=== PATIENT | male | born 1970 | race Caucasian/White ===

== ENCOUNTER 2020-01-05 12:35 | Emergency (ER) | payer BC, SELFPAY ==
[2020-01-05 12:45] VITALS: BP 136/86; PULSE 83; RESP 20; TEMP 36.7; O2SAT 99
--- NOTE | 2020-01-05 12:50 | ED.GENADULT ---
HPI - General Adult General Chief complaint: Dizziness Stated complaint: ears and congestion Time Seen by Provider: 01/05/20 12:50 Source: patient and RN notes reviewed Mode of arrival: ambulatory Limitations: no limitations History of Present Illness HPI narrative: 49-year-old male presents with complaints of dizziness and nausea that has been going on for 1 day. Symptoms increased throughout the past 24 hours. Advil and Claritin, last 1 day ago without relief. Festus complains of nasal congestion and rhinorrhea. Exacerbating factors consist of changing position too fast turning head from side to side. Relieving factors is sitting still. Denies ear pain, ear itching, ear trauma, trauma to head, syncopal episodes, altered vision, altered speech, confusion, or seizure activity. Denies headache, numbness or tingling in extremities. Denies chest pain or dyspnea. Remains active. Festus says he has been driving throughout the country ([place], [facility], and now here in [place]) by RV visiting family. Says he recently had a NEGATIVE COVID-19 test on 12/06/19. The patient reports he have not been diagnosed with COVID-19. The patient reports he is not waiting for the results of a COVID-19 lab test. The patient reports he do not have fever, chills, weakness, or fatigue. The patient reports he do not have a new or worsening cough or shortness of breath. Denies chest pain. The patient reports he do not have any sore throat, vomiting, abdominal pain, and diarrhea. Tolerating po intake well. Denies concerns for COVID-19 or exposures been home since [id number] order except for essential household needs, working, and return home. At this time, patient is not suspected of having COVID-19. Some parts of this dictation were generated by voice recognition software and may contain typographical and/or grammatical inaccuracies. Related Data Allergies Allergy/AdvReac Type Severity Reaction Status Date / Time No Known Allergies Allergy Verified 01/05/20 13:12 Review of Systems Review of Systems: Narrative: CONSTITUTIONAL: Denies fever, chills, sweats. EYES: Denies visual changes, redness, discharge. ENT: Complains of rhinorrhea, congestion. Denies sore throat, otalgia. CARDIOVASCULAR: Denies chest pain, palpitations, edema. RESPIRATORY: Denies dyspnea, wheezing, cough. GASTROINTESTINAL: Denies abdominal pain, vomiting, diarrhea. Complains of nausea. GENITOURINARY: Denies dysuria, hematuria, abnormal discharge. SKIN: Denies lesions, itching, drainage. MUSCULOSKELETAL: Denies acute back pain, joint pain, or myalgia. NEUROLOGIC: Denies numbness or focal weakness. Complains of dizziness. PSYCHIATRIC: Denies anxiety or depression. All systems reviewed & are unremarkable except as noted in HPI and below. [facility] Family History Family History (Updated 01/05/20 @ 13:55 by NIKOS Herrera) Father Non-Hodgkin lymphoma Mother Ovarian cancer Social History Social History Smoking status: Former smoker Second hand tobacco smoke exposure: No Alcohol intake: current Substance use: never Gender identity (if verbalized by the patient): Male Comments At time of signature, agree with nurse past medical, surgical, social, and family history. There is no relevant family history pertinent to the presenting complaint. Exam Narrative: Exam Narrative: GENERAL: This is a well-nourished, well-developed patient, in no apparent distress. Talks in full sentences and ambulates with steady gait without dyspnea. HEAD: normocephalic, atraumatic. EYES: PERRL. Sclera clear/white. Vision is grossly intact. EARS: External ears normal, auditory canals clear and without drainage, TMs normal without perforation. Hearing grossly intact. NOSE: External nose normal with no obvious nasal discharge, nares without redness, no rhinorrhea. THROA
--- NOTE | 2020-01-05 12:54 | ECG_ITS ---
Measurements Intervals [place] Rate: 80 P: 58 NH: 167 QRS: 36 QRSD: 111 T: 22 QT: 371 QTc: 429 Interpretive Statements SINUS RHYTHM INTRAVENTRICULAR CONDUCTION DELAY BORDERLINE ECG Electronically Signed On 01-05-2020 13:01:44 CDT by Cyril Tong D.O.
[2020-01-05 13:00] VITALS: BP 141/83; PULSE 82
[2020-01-05 13:02] VITALS: BP 146/93; PULSE 88
[2020-01-05 13:04] VITALS: BP 145/89; PULSE 83
[2020-01-05 13:10] LABS: Glucose Point of Care 106 (65-105)
[2020-01-05] MEDS: ONDANSETRON HCL ODT 4 MG TABLET PO (13:16)
[2020-01-05] MEDS: MECLIZINE HCL 25 MG TABLET PO (13:16)
[2020-01-05 13:45] VITALS: BP 135/81; PULSE 87; RESP 16; O2SAT 98
[2020-01-05] MEDS: ONDANSETRON INJ 4 MG/2 ML VIAL IM (13:54)
--- NOTE | 2020-01-05 14:00 | PC.NURSE ---
1350. PT. BEING REASSESSED FOR PO ZOFRAN AND MECLAZINE, SAT PT. UP ON SIDE OF BED TO ASSESS AND PT. BECAME NAUSEATED AND VOMITED X 2. STATES FEELS BETTER AFTER VOMITING. ORDER FOR IM ZOFRAN GIVEN. DENIED INCREASE DIZZINESS.
== END 2020-01-05 14:35 | disposition home or self-care (01) ==
PROVIDERS: Emergency Provider Nurse Practitioner Family
DX: H81.10 Benign paroxysmal vertigo, unspecified ear (principal); Z87.891 Personal history of nicotine dependence; I45.9 Conduction disorder, unspecified
CPT/HCPCS: 82948; 93005; 96372; 99213; A9270; G0463; J2405

== ENCOUNTER 2020-01-06 11:13 | Emergency (ER) | payer BC, SELFPAY ==
[2020-01-06 11:31] VITALS: BP 137/87; PULSE 86; RESP 14; TEMP 36.1; O2SAT 99
--- NOTE | 2020-01-06 11:34 | ECG_ITS ---
Measurements Intervals [place] Rate: 79 P: 43 LA: 124 QRS: 55 QRSD: 100 T: 38 QT: 366 QTc: 420 Interpretive Statements SINUS RHYTHM NORMAL ECG Electronically Signed On 01-06-2020 12:11:03 CDT by Cyril Tong D.O.
[2020-01-06 11:36] VITALS: BP 128/88; PULSE 84; RESP 12; O2SAT 99
[2020-01-06 11:40] LABS: Glucose Point of Care 101 (65-105)
[2020-01-06] MEDS: SODIUM CHLORIDE 0.9% IV 1,000 ML 999 ML IV CONT (11:43)
[2020-01-06] MEDS: FAMOTIDINE 20 MG/2 ML VIAL IV PUSH (11:44)
[2020-01-06 11:54] LABS: Basophils Percent Auto 0.2 % (0.2-1.2); Hemoglobin 16.1 g/dL (14.0-18.0); Immature Granulocyte Absolute 0.03 K/mm3 (0.00-0.031); Immature Granulocyte Percent A 0.3 % (0-0.5); Lymphocytes Absolute Auto 0.89 K/mm3 (0.9-3.2); Mean Corpuscular HGB Conc 34.3 g/dl (32-36); Mean Corpuscular Hemoglobin 33.1 pg (26-34); Mean Corpuscular Volume 96.7 fl (80-100); Mean Platelet Volume 10.4 fl (7.4-10.4); Monocytes Absolute Auto 0.4 K/mm3 (0.1-0.6); Monocytes Percent Auto 4.4 % (2.6-8.5); Neutrophils Absolute Auto 7.6 K/mm3 (1.3-6.7); Neutrophils Percent Auto 85.1 % (45.5-73.1); Platelet Count Result 166 k/mm3 (150-375); Red Blood Count 4.86 M/mm3 (4.6-6.20); Red Cell Distribution Width 12.2 % (11.5-14.5); White Blood Count 8.9 K/mm3 (4.5-10.0)
[2020-01-06 12:06] LABS: Alanine Aminotransferase 31 U/L (4-50); Albumin Level 4.6 g/dL (3.5-5.1); Alkaline Phosphatase 93 U/L (38-126); Aspartate Amino Transferase 32 U/L (17-59); Bilirubin,Total 0.8 mg/dL (0.2-1.3); Blood Urea Nitrogen 21 mg/dL (9-20); Calcium 9.4 mg/dL (8.4-10.2); Carbon Dioxide 26 mmol/L (22-30); Chloride 103 mmol/L (98-107); Estimated CRCL calculation 91 ml/min; Estimated Glomerular Filt Rate > 60; Glucose 110 mg/dL (75-110); Potassium 3.8 mmol/L (3.4-5.0); Sodium 138 mmol/L (137-145)
[2020-01-06 12:07] LABS: INR 1.1; Partial Thromboplastin Time 26.7 SECONDS (22.3-36.8); Prothrombin Time 13.5 Seconds (11.1-14.7)
--- NOTE | 2020-01-06 12:13 | ED.GENADULT ---
HPI - General Adult General Chief complaint: Dizziness <Richard Beasley PA-C - Last Filed: 01/06/20 14:08> Stated complaint: Dizzy <Richard Beasley PA-C - Last Filed: 01/06/20 14:08> Time Seen by Provider: 01/06/20 11:23 <Richard Beasley PA-C - Last Filed: 01/06/20 14:08> Source: patient and family <EUGENIA Cooney Last Filed: 01/06/20 14:08> Mode of arrival: ambulatory <Richard Beasley PA-C - Last Filed: 01/06/20 14:08> Limitations: no limitations <Richard Beasley PA-C - Last Filed: 01/06/20 14:08> History of Present Illness HPI narrative: Patient is a 49-year-old male who presents to emergency department for evaluation of dizziness that is been present for the last 3 days patient notes he had has had dizziness historically during the last 2 years having normal MRI brain imaging. Patient notes that he was seen yesterday at urgent care given meclizine with minimal improvement had one episode of emesis yesterday. Patient on arrival to emergency department notes that the symptoms are worse with standing and improved with lying. Patient notes he has had some congestion and runny nose but denies other URI symptoms or sick contacts <Richard Beasley PA-C - Last Filed: 01/06/20 14:08> Related Data Allergies/adverse reactions: Allergies Allergy/AdvReac Type Severity Reaction Status Date / Time No Known Allergies Allergy Verified 01/05/20 13:12 <Richard Beasley PA-C - Last Filed: 01/06/20 14:08> Review of Systems Review of Systems: All systems reviewed & are unremarkable except as noted in HPI and below <Richard Beasley PA-C - Last Filed: 01/06/20 14:08> [facility] [place] Past Medical History Medical History: Medical History Broken leg Colon polyps Lower extremity surgery planned <EUGENIA Cooney Last Filed: 01/06/20 14:08> Surgical History Surgical History: Surgical History History of colonoscopy <Richard Beasley PA-C - Last Filed: 01/06/20 14:08> Family History Family History: Family History (Updated 01/05/20 @ 13:55 by NIKOS Herrera) Father Non-Hodgkin lymphoma Mother Ovarian cancer <Richard Beasley PA-C - Last Filed: 01/06/20 14:08> Social History Social History: Social History Smoking status: Former smoker Second hand tobacco smoke exposure: No Alcohol intake: current Substance use: never Gender identity (if verbalized by the patient): Male <Richard Beasley PA-C - Last Filed: 01/06/20 14:08> Exam Narrative: Exam Narrative: GENERAL: Well-appearing, well-nourished, and in no acute distress. HEAD: Normocephalic, atraumatic. EYES: PERRLA and EOMI. ENT: Nares clear, no rhinorrhea or epistaxis. Mucous membranes moist. Oropharynx without tonsillar hypertrophy exudate or other lesions. Bilateral TMs pearly lima nonbulging NECK: Supple. No adenopathy or masses. No carotid bruits or JVD CHEST: Clear to auscultation. No respiratory distress. No wheezes rales or rhonchi HEART: Regular rate and rhythm. No murmur heard. Normal peripheral pulses. ABDOMEN: Soft, nontender, nondistended EXTREMITIES: Normal range of motion. No edema. SKIN: Warm, dry, no rash. NEURO: No focal deficits. Alert and oriented x3. Cranial nerves II through XII grossly intact. Normal speech. Patient moves all extremities appropriately. Normal gait PSYCH: Normal mood and affect. <Richard Beasley PA-C - Last Filed: 01/06/20 14:08> Course Vital Signs Vital signs: Vital Signs Temperature 97.0 F L 01/06/20 11:31 Pulse Rate 86 01/06/20 11:31 Respiratory Rate 14 01/06/20 11:31 Blood Pressure 137/87 01/06/20 11:31 Pulse Oximetry 99 01/06/20 11:31 Temperature 97.0 F L 01/06/20 11:31 Pulse Rate 83
[2020-01-06 12:18] LABS: Troponin I < 0.012 ng/mL (0.000-0.034)
[2020-01-06 14:28] VITALS: BP 132/88; PULSE 83; RESP 16
== END 2020-01-06 14:28 | disposition home or self-care (01) ==
PROVIDERS: Emergency Medicine Emergency Medical Services; Emergency Provider General Practice
DX: R42 Dizziness and giddiness (principal); Z87.891 Personal history of nicotine dependence; Z86.010 Personal history of colon polyps
CPT/HCPCS: 36415; 80053; 82948; 84484; 85025; 85610; 85730; 93005; 96361; 96374; 96375; 99284; J3360; J7030

== ENCOUNTER 2021-01-01 08:23 | Emergency (ER) | payer BC, SELFPAY ==
[2021-01-01 08:29] VITALS: BP 154/91; PULSE 83; RESP 20; TEMP 36.9; O2SAT 100
[2021-01-01 08:36] VITALS: BP 154/91; PULSE 83; RESP 20; TEMP 36.9; O2SAT 100
--- NOTE | 2021-01-01 08:38 | ED.NEUROSD ---
HPI - Neuro Symptoms/Deficit General Chief Complaint: Neuro Symptoms/Deficit Stated Complaint: Possible Bellx Palsey Time Seen by Provider: 01/01/21 08:42 Source: patient, family and RN notes reviewed Mode of arrival: ambulatory Limitations: no limitations History of Present Illness HPI Narrative: 50-year-old male who presents to [facility] with complaints of left side of his mouth drooping for the past 2 days. He states that he initially had a pressure feeling behind his left ear which was 3 days ago and then he noted for the past 2 days facial dropping of the left side of his mouth. He denies any tingling or numbness feeling to his face, denies any changes in his arm strength or movement, gait is steady with no complaints of dizziness. He states that he has had [place] Palsy in the past 10 years ago and symptoms are similar. When he smiles obvious drooping to mouth noted, and when he squeezes eyes shut some lag of the left eye. Patient is alert and oriented with cognition intact. Onset (ago): day(s) (2) Timing confirmed by: spouse Location: left face History of same: Yes Context: gradual onset On Anticoagulants: No Treatments Prior to Arrival: none Related Data Allergies Allergy/AdvReac Type Severity Reaction Status Date / Time No Known Allergies Allergy Verified 01/01/21 08:35 Review of Systems Review of Systems: Narrative: CONSTITUTIONAL: Denies fever, chills, or sweats. EYES: Denies visual changes, redness, or discharge. ENT: Denies rhinorrhea, congestion, sore throat, or otalgia reports pressure behind the ear on left CARDIOVASCULAR: Denies chest pain, palpitations, or edema. RESPIRATORY: Denies cough or dyspnea. GASTROINTESTINAL: Denies abdominal pain, nausea, vomiting, or diarrhea. GENITOURINARY: Denies dysuria or hematuria. SKIN: Denies rash or itching. MUSCULOSKELETAL: Denies back pain, joint pain, or myalgia. NEUROLOGIC: Denies headache, numbness, or weakness.left side of mouth is drooping especially noted with smile. 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 All systems reviewed & are unremarkable except as noted in HPI and below PMFSH Past Medical History Medical History (Updated 01/01/21 @ 09:48 by Moni Saleh NP) Broken leg Colon polyps Left-sided Wetzel's palsy Lower extremity surgery planned Surgical History Surgical History (Updated 01/01/21 @ 09:49 by Moni Saleh NP) History of back surgery lumbar History of colonoscopy Hx of LASIK Family History Family History (Updated 01/05/20 @ 13:55 by NIKOS Herrera) Father Non-Hodgkin lymphoma Mother Ovarian cancer Social History Social History Smoking status: Former smoker Second hand tobacco smoke exposure: No Alcohol intake: current Substance use: never Gender identity (if verbalized by the patient): Male Comments At time of signature, agree with nursing past medical, surgical, social and family history. There is no relevant family history pertinent to the presenting complaint Exam Narrative: Exam Narrative: GENERAL: Well-appearing, well-nourished, and in no acute distress. HEAD: Normocephalic, atraumatic. EYES: PERRLA and EOMI. ENT: Nares clear, no rhinorrhea or epistaxis. Mucous membranes moist.TM's normal with good light reflex, throat pink with no swelling or tonsil enlargement NECK: Supple.no lymphadenopathy CHEST: Clear to auscultation. No respiratory distress.SAO2 100% on room air HEART: Regular rate and rhythm. No murmur heard. Normal peripheral pulses. ABDOMEN: Soft, nontender, nondistended, normal active bowel sounds. EXTREMITIES: Normal range of motion. No edema. SKIN: Warm, dry, no rash. NEURO: Alert and oriented x3.drooping of left side of mouth when he smiles and unable to squeeze left eye shut as tightly as right, MAEW on own power with no arm lag, equal strong hand technical solution architect, gai
== END 2021-01-01 09:09 | disposition home or self-care (01) ==
PROVIDERS: Emergency Provider Registered Nurse
DX: G51.0 Bell's palsy (principal); Z87.891 Personal history of nicotine dependence
CPT/HCPCS: 99213; G0463